=== PATIENT | female | born 1940 | race African-American/Black ===

== ENCOUNTER 2017-02-02 20:36 | Observation (INO) | payer MEDICARE, OTHER ==
[~2017-02-02] VITALS: Ht 154.9 cm; Wt 136.3 kg
[2017-02-02 23:03] LABS: DIFFERENTIAL COMMENT 1; HEMOGLOBIN. 12.7 g/dL (12.0-16.0); MEAN CORPUSCULAR HEMOGLOBIN 28.4 pg (28.0-32.0); MEAN CORPUSCULAR HGB CONC 32.5 g/dL (31.0-37.0); MEAN CORPUSCULAR VOLUME 87.4 fL (81.0-99.0); PLATELET 127 x1000/uL (130-400); RED BLOOD CELL COUNT 4.46 mill/uL (4.2-5.4); RED CELL DISTRIBUTION WIDTH 17.6 % (11.6-14.6)
[2017-02-02 23:10] LABS: INR 1.5; PARTIAL THROMBOPLASTIN TIME 26.6 sec (24.0-34.0); PROTHROMBIN TIME 15.1 sec
[2017-02-02 23:15] LABS: PLATELET ESTIMATE SLIGHTLY DECREASED
[2017-02-02 23:16] LABS: ALANINE AMINOTRANSFERASE 42 IU/L (13-61); ALBUMIN 2.8 g/dL (3.4-5.0); ANION GAP 14; CALCIUM 8.3 mg/dL (8.5-10.1); CARBON DIOXIDE 27 mEq/L (21-32); CHLORIDE 105 mEq/L (98-107); INDEX HEMOLYSI 1 (1-3); INDEX ICTERIC 2 (1-4); INDEX LIPEMIC 1 (1-3); NT PRO B-TYPE NATRIURETIC PEP 11248 pg/mL (5-125); UREA NITROGEN BLOOD 23 mg/dL (7-21); eGFR 41 mL/min (>60)
[2017-02-02] MEDS ORDERED: MORPHINE SULFATE 4 MG/ML CPJ (NOT FOR IM USE) IV ONE (23:45)
[2017-02-02] MEDS ORDERED: ONDANSETRON HCL 4MG/2ML VIAL IV ONE (23:45)
[2017-02-03 02:19] LABS: CLARITY URINE CLOUDY (CLEAR); COLOR URINE DARK YELLOW (YELLOW); GLUCOSE URINE NEGATIVE (NEGATIVE); KETONES URINE NEGATIVE (NEGATIVE); LEUKOCYTE ESTERASE URINE TRACE (NEGATIVE); NITRITE URINE POSITIVE (NEGATIVE); OCCULT BLOOD URINE 1+ (NEGATIVE); PROTEIN URINE 3+ (NEGATIVE); SPECIFIC GRAVITY URINE 1.032 (1.005-1.030)
[2017-02-03 03:07] LABS: SQUAMOUS EPITHELIAL CELL URINE 1+ /lpf (RARE/1+)
[2017-02-03 03:12] LABS: RBC URINE 0-2 /hpf (0-2)
[2017-02-03 03:13] LABS: BACTERIA URINE 2+
[2017-02-03 15:00] VITALS: BP 144/77
[2017-02-03] MEDS ORDERED: IPRATROPIUM/ALBUTEROL 0.5-3(2.5)MG/3ML NEB INH PRN (15:30)
[2017-02-03] MEDS: AMLODIPINE 5MG TABLET PO SCH ×2 (15:30→20:35)
[2017-02-03] MEDS ORDERED: ACETAMINOPHEN 325MG TABLET PO PRN (15:30)
[2017-02-03] MEDS ORDERED: CLONIDINE 0.1MG TABLET PO PRN ×2 (15:30→15:45)
[2017-02-03] MEDS ORDERED: ONDANSETRON HCL 4MG/2ML VIAL IV PRN (15:30)
[2017-02-03 16:00] VITALS: BP 118/85
[2017-02-03] MEDS: FUROSEMIDE 40MG/4ML VIAL IV SCH (16:18)
[2017-02-03] MEDS: HYDROCODONE/ACETAMINOPHEN 5/325MG TABLET PO PRN (16:19)
[2017-02-03] MEDS ORDERED: PNEUMOCOCCAL 23-VAL P-SAC VAC 0.5 ML IM ONE (17:30)
[2017-02-03] MEDS ORDERED: INFLUENZA VIRUS VACCINE 0.5ML SYR IM ONE (17:30)
[2017-02-03 17:51] LABS: CALCIUM 8.5 mg/dL (8.5-10.1)
[2017-02-03] MEDS ORDERED: LEVOFLOXACIN 500MG PREMIX 100 ML IV SCH (18:00)
[2017-02-03 20:00] VITALS: BP 135/83
[2017-02-03] MEDS: ENOXAPARIN 30MG/0.3ML SYR SUBCUT SCH (20:35)
[2017-02-03 23:42] LABS: TROPONIN I 0.06 ng/mL (0.00-0.04)
[2017-02-04] VITALS: BP 141/82
[2017-02-04] MEDS: HYDROCODONE/ACETAMINOPHEN 5/325MG TABLET PO PRN (02:03)
[2017-02-04 04:00] VITALS: BP 123/71
[2017-02-04] MEDS: DIPHENHYDRAMINE 50MG/ML VIAL IV PRN (07:05)
[2017-02-04 07:13] LABS: HEMATOCRIT. 39.4 % (36.0-48.0); HEMOGLOBIN. 12.5 g/dL (12.0-16.0); MEAN CORPUSCULAR HEMOGLOBIN 28.2 pg (28.0-32.0); MEAN CORPUSCULAR HGB CONC 31.6 g/dL (31.0-37.0); MEAN PLATELET VOLUME 9.8 fl (7.4-10.4); PLATELET 126 x1000/uL (130-400); RED BLOOD CELL COUNT 4.43 mill/uL (4.2-5.4); RED CELL DISTRIBUTION WIDTH 17.8 % (11.6-14.6)
[2017-02-04 07:47] LABS: DIFFERENTIAL COMMENT 1
[2017-02-04 08:04] VITALS: BP 137/90
[2017-02-04 09:38] LABS: T4 FREE 1.27 ng/dL (0.76-1.46); THYROID STIMULATING HORMONE 4.4 uIU/mL (0.36-3.74); TROPONIN I 0.06 ng/mL (0.00-0.04)
[2017-02-04 10:04] LABS: CALCIUM 8.5 mg/dL (8.5-10.1)
[2017-02-04] MEDS: AMLODIPINE 5MG TABLET PO SCH ×2 (10:12→20:18)
[2017-02-04] MEDS: METOPROLOL TARTRATE 25MG TABLET PO SCH ×2 (10:12→20:18)
[2017-02-04] MEDS: FUROSEMIDE 40MG/4ML VIAL IV SCH (10:13)
[2017-02-04] MEDS: ENOXAPARIN 30MG/0.3ML SYR SUBCUT SCH ×2 (10:13→20:18)
[2017-02-04] MEDS: ASPIRIN 81MG EC TABLET PO SCH (10:13)
[2017-02-04 13:19] LABS: MAGNESIUM 2.3 mg/dL (1.8-2.4)
[2017-02-04 14:34] LABS: ANISOCYTOSIS 1+; PLATELET ESTIMATE SLIGHTLY DECREASED
[2017-02-04 14:35] LABS: TARGET CELLS FEW
[2017-02-04 16:29] VITALS: BP 130/69
[2017-02-04] MEDS: LEVOFLOXACIN 250MG PREMIX 50 ML IV SCH (17:18)
[2017-02-04 20:07] VITALS: BP 111/72
[2017-02-05] VITALS (7 sets, daily range): BP systolic 103–120; BP diastolic 63–87
[2017-02-05 06:26] LABS: HEMATOCRIT. 40.5 % (36.0-48.0); HEMOGLOBIN. 12.9 g/dL (12.0-16.0); MEAN CORPUSCULAR HEMOGLOBIN 28.4 pg (28.0-32.0); MEAN CORPUSCULAR HGB CONC 31.8 g/dL (31.0-37.0); MEAN CORPUSCULAR VOLUME 89.2 fL (81.0-99.0); MEAN PLATELET VOLUME 10.1 fl (7.4-10.4); PLATELET 129 x1000/uL (130-400); RED BLOOD CELL COUNT 4.54 mill/uL (4.2-5.4)
[2017-02-05 06:28] LABS: CALCIUM 8.6 mg/dL (8.5-10.1)
[2017-02-05 06:31] LABS: MAGNESIUM 2.3 mg/dL (1.8-2.4)
[2017-02-05 06:39] LABS: DIFFERENTIAL COMMENT 1
[2017-02-05 09:14] LABS: NUCLEATED RED BLOOD CELLS 1 /100 WBC
[2017-02-05 09:16] LABS: PLATELET ESTIMATE NORMAL
[2017-02-05] MEDS: FUROSEMIDE 40MG/4ML VIAL IV SCH (10:15)
[2017-02-05] MEDS: METOPROLOL TARTRATE 25MG TABLET PO SCH (10:16)
[2017-02-05] MEDS: AMLODIPINE 5MG TABLET PO SCH (10:16)
[2017-02-05] MEDS: ENOXAPARIN 30MG/0.3ML SYR SUBCUT SCH (10:16)
[2017-02-05] MEDS: ASPIRIN 81MG EC TABLET PO SCH (10:16)
[2017-02-05] MEDS ORDERED: BISACODYL 5MG TABLET PO PRN (16:00)
[2017-02-05] MEDS: LEVOFLOXACIN 250MG PREMIX 50 ML IV SCH (17:34)
[2017-02-05] MEDS: ATORVASTATIN CALCIUM 20MG TABLET PO SCH (20:29)
[2017-02-05] MEDS: DIPHENHYDRAMINE 50MG/ML VIAL IV PRN (23:58)
[2017-02-06 04:00] VITALS: BP_SYST 112; BP_SYST 138; BP_DIAS 68; BP_DIAS 78
[2017-02-06 07:13] LABS: HEMATOCRIT. 40.8 % (36.0-48.0); MEAN CORPUSCULAR HEMOGLOBIN 28.2 pg (28.0-32.0); MEAN CORPUSCULAR HGB CONC 31.8 g/dL (31.0-37.0); MEAN CORPUSCULAR VOLUME 88.5 fL (81.0-99.0); MEAN PLATELET VOLUME 9.4 fl (7.4-10.4); PLATELET 123 x1000/uL (130-400); RED CELL DISTRIBUTION WIDTH 18.3 % (11.6-14.6); WHITE BLOOD COUNT 8.3 x1000/uL (4.5-11.0)
[2017-02-06 07:47] LABS: DIFFERENTIAL COMMENT 1
[2017-02-06 07:54] LABS: CALCIUM 8.4 mg/dL (8.5-10.1); MAGNESIUM 2.3 mg/dL (1.8-2.4)
[2017-02-06 08:00] VITALS: BP 118/67
[2017-02-06 09:42] LABS: ANISOCYTOSIS 1+; GIANT PLATELETS 1+; NUCLEATED RED BLOOD CELLS 1 /100 WBC; PLATELET ESTIMATE SLIGHTLY DECREASED; TARGET CELLS FEW
[2017-02-06 12:00] VITALS: BP 130/77
[2017-02-06] MEDS: LEVOFLOXACIN 250MG TABLET PO SCH (12:35)
[2017-02-06] MEDS: FUROSEMIDE 40MG TABLET PO SCH (12:36)
[2017-02-06] MEDS: ASPIRIN 81MG EC TABLET PO SCH (12:36)
[2017-02-06] MEDS: ENOXAPARIN 40MG/0.4ML SYR SUBCUT SCH (12:41)
[2017-02-06 16:00] VITALS: BP 150/78
[2017-02-06 20:00] VITALS: BP 118/63
[2017-02-06] MEDS: ATORVASTATIN CALCIUM 20MG TABLET PO SCH (21:04)
[2017-02-07] VITALS (7 sets, daily range): BP systolic 125–137; BP diastolic 66–85
[2017-02-07] MEDS: HYDROCODONE/ACETAMINOPHEN 5/325MG TABLET PO PRN (05:17)
[2017-02-07] MEDS: FUROSEMIDE 40MG TABLET PO SCH (09:30)
[2017-02-07] MEDS: ASPIRIN 81MG EC TABLET PO SCH (09:30)
[2017-02-07] MEDS: ENOXAPARIN 40MG/0.4ML SYR SUBCUT SCH (09:30)
[2017-02-07 10:02] LABS: DIFFERENTIAL COMMENT 1; HEMATOCRIT. 40.1 % (36.0-48.0); HEMOGLOBIN. 12.6 g/dL (12.0-16.0); MEAN CORPUSCULAR HEMOGLOBIN 28.3 pg (28.0-32.0); MEAN CORPUSCULAR HGB CONC 31.4 g/dL (31.0-37.0); MEAN PLATELET VOLUME 9.2 fl (7.4-10.4); PLATELET 114 x1000/uL (130-400); RED BLOOD CELL COUNT 4.46 mill/uL (4.2-5.4); RED CELL DISTRIBUTION WIDTH 18.1 % (11.6-14.6); WHITE BLOOD COUNT 6.6 x1000/uL (4.5-11.0)
[2017-02-07 10:39] LABS: NUCLEATED RED BLOOD CELLS 1 /100 WBC
[2017-02-07 10:42] LABS: CALCIUM 8.4 mg/dL (8.5-10.1); MAGNESIUM 2.2 mg/dL (1.8-2.4)
[2017-02-07 10:43] LABS: THYROID STIMULATING HORMONE 4.9 uIU/mL (0.36-3.74)
[2017-02-07 10:44] LABS: ANISOCYTOSIS 2+; GIANT PLATELETS FEW; PLATELET ESTIMATE SLIGHTLY DECREASED
[2017-02-07] MEDS: LEVOFLOXACIN 250MG TABLET PO SCH (11:16)
[2017-02-07] MEDS: ATORVASTATIN CALCIUM 20MG TABLET PO SCH (20:58)
== END 2017-02-07 20:50 | disposition short-term general hospital (02) ==
LOC: ER 20:36 → INTOOBSV 23:36 → 7WST 23:36
PROVIDERS: ADMIT Internal Medicine; ATTEND Internal Medicine
DX: E87.70 Fluid overload, unspecified (principal); N17.9 Acute kidney failure, unspecified; R60.0 Localized edema; R42 Dizziness and giddiness; N18.3 Chronic kidney disease, stage 3 (moderate); I12.9 Hypertensive chronic kidney disease with stage 1 through stage 4 chronic kidney disease, or unspecified chronic kidney disease; M79.89 Other specified soft tissue disorders; R10.9 Unspecified abdominal pain; R19.7 Diarrhea, unspecified; R11.2 Nausea with vomiting, unspecified; R68.83 Chills (without fever); Z90.710 Acquired absence of both cervix and uterus; R06.02 Shortness of breath; N39.0 Urinary tract infection, site not specified; Z23 Encounter for immunization
CPT/HCPCS: 36415; 71010; 76700; 80048; 80053; 80061; 81001; 82550; 83735; 83880; 84439; 84443; 84484; 85025; 85610; 85730; 87040; 87086; 90471; 90472; 90682; 90732; 93005; 93306; 93970; 96365; 96366; 96372; 96374; 96375; 96376; 97116; 97162; 97166; 99285; G0378; J1200; J1650; J1940; J1956; J2270; J2405; J7050; 90686